=== PATIENT | male | born 1960 | race Caucasian/White ===

== ENCOUNTER 2017-03-26 07:55 | Emergency (ER) | payer OTHER ==
[2017-03-26 08:07] VITALS: BP 136/72; PULSE 73; TEMP 98.4; BMI 13.1
--- NOTE | 2017-03-26 08:08 | PDOC ---
History of Present Illness - General Chief Complaint: Pain, Acute Stated Complaint: LEFT ARM SWOLLEN Time Seen by Provider: 03/26/17 07:58 History Source: Patient Exam Limitations: No Limitations - History of Present Illness Initial Comments: 56 yo M presents with L arm swelling. He has MR, nonverbal at baseline. No known trauma. He typically bruises easily. Past History - Past Medical History Allergies/Adverse Reactions: Allergies Allergy/AdvReac Type Severity Reaction Status Date / Time No Known Allergies Allergy Verified 03/26/17 08:01 Home Medications: Ambulatory Orders Acetaminophen [Tylenol .Regular Strength -] 650 mg PO PRN PRN 07/22/13 Ascorbic Acid [Vitamin C] 500 mg PO DAILY 07/22/13 Aspirin Coated [Ecotrin -] 81 mg PO DAILY 07/22/13 Famotidine [Pepcid -] 20 mg PO DAILY 07/22/13 Niacin [Niaspan] 500 mg PO HS 07/22/13 Nut.tx.gluc.intoler,Lac-Fr,Soy [Glucerna] 237 ml PO AM 07/22/13 Oxybutynin Chloride [Oxybutynin Chloride ER] 5 mg PO BID 07/22/13 Glyburide [Diabeta] 5 mg PO DAILY 01/15/16 Mineral Oil/Hydrophil Petrolat [Aquaphor Healing Ointment] 50 gm TP BID Na Phos,M-B/Na Phos,Di-Ba [Fleet Enema] 133 ml RC DAILY #2 enema 01/16/16 Psyllium Husk (with Sugar) [Metamucil Packet] 3.4 gm PO DAILY #1 box 01/16/16 Sennosides [Senna Laxative] 25 mg PO DAILY #30 tablet 01/16/16 Anemia: Yes Cardiac Disorders: Yes (MITRAL VALVE REGURG) Diabetes: Yes (DOWN'S,MENTAL RETARDATION) Disorders: Yes (UNDESCENDED TESTES) HTN: Yes Hypercholesterolemia: Yes - Immunization History Td Vaccination: Yes Immunization Up to Date: Yes - Psycho/Social/Smoking Cessation Hx Anxiety: No Suicidal Ideation: No Smoking Status: No Smoking History: Unknown if ever smoked Have you smoked in the past 12 months: No Number of Cigarettes Smoked Daily: 0 Hx Alcohol Use: No Drug/Substance Use Hx: No Substance Use Type: None Review of Systems - Review of Systems Able to Perform ROS?: No (nonverbal) *Physical Exam - Physical Exam Comments: GENERAL: Awake, alert, and fully oriented, in no acute distress HEAD: No signs of trauma EYES: PERRLA, EOMI, sclera anicteric, conjunctiva clear EXTREMITIES: L arm slightly swollen compared with R. Nontender. Small erythematous lesion to L upper arm. Remainder of extremities with normal range of motion, no edema. No clubbing or cyanosis. No cords, erythema, or tenderness NEUROLOGICAL: Cranial nerves II through XII grossly intact. Normal gait SKIN: Warm, Dry, normal turgor, no rashes or lesions noted except as above. Medical Decision Making - Medical Decision Making Very minimal difference in appearance of the arms. No erythema, no venous cords. No pitting edema. No signs of DVT. If swelling increases, recommended that he return for further evaluation. Stable for DC home. *DC/Admit/Observation/Transfer Diagnosis at time of Disposition: Left arm swelling - Discharge Dispostion Disposition: HOME Condition at time of disposition: Stable Admit: No - Patient Instructions Printed Discharge Instructions: DI for Arm Pain Additional Instructions: If the swelling worsens, or if there is redness, pain, or fever, return to the ER.
== END 2017-03-26 10:11 | disposition home or self-care (01) ==
LOC: FER 07:55
DX: M79.89 Other specified soft tissue disorders (principal); F79 Unspecified intellectual disabilities; I10 Essential (primary) hypertension; Q90.9 Down syndrome, unspecified; I34.0 Nonrheumatic mitral (valve) insufficiency
CPT/HCPCS: 73060-TC-LT; 73090-TC-LT; 99281-25

== ENCOUNTER 2017-05-14 09:35 | Emergency (ER) | payer OTHER ==
[2017-05-14 09:44] VITALS: BP 143/79; PULSE 92; TEMP 98.6; BMI 20.9
--- NOTE | 2017-05-14 09:55 | PDOC ---
History of Present Illness - General Chief Complaint: Eye Problem Stated Complaint: LEFT EYE REDNESS Time Seen by Provider: 05/14/17 09:37 History Source: Patient Exam Limitations: No Limitations - History of Present Illness Initial Comments: 05/14/17 09:56 56y M hx of microcephaly, DM2, HTN, MR, HL, nonverbal at baseline, CKD presents with eye redness. Per staff accompanying the pt, he was fine yesterday and there was no recent fever/chills, n/v, eye discharge, sneezing, runny nose or change to his behavior. During breakfast, the pt was noted to have some redness in his L eye and he was rubbing it several times, but that seems to have stopped. Staff notes that they put sunscreen on the patients every day, and did prior to breakfast. Staff notes that the redness seems to have improved even over the past 2 hrs. There was no noted dishcarge in his eyes overnight nor when people cleaned him this morning. Past History - Past Medical History Allergies/Adverse Reactions: Allergies Allergy/AdvReac Type Severity Reaction Status Date / Time No Known Allergies Allergy Verified 05/14/17 09:36 Home Medications: Ambulatory Orders Ascorbic Acid [Vitamin C] 500 mg PO DAILY 05/14/17 Clotrimazole 1 applic TP BID 05/14/17 Cyanocobalamin [Vitamin B12 -] 1,000 mcg PO DAILY 05/14/17 Famotidine 20 mg PO DAILY 05/14/17 Glyburide 5 mg PO DAILY 05/14/17 Nut.tx.gluc.intoler,Lac-Fr,Soy [Glucerna 1.5 Mark] 237 ml PO DAILY 05/14/17 Oxybutynin Chloride 5 mg PO BID 05/14/17 Polyethylene Glycol 3350 [Miralax (For Daily Use) -] 17 gm PO DAILY 05/14/17 Sennosides [Senna -] 1 tab PO HS 05/14/17 Anemia: Yes Cardiac Disorders: Yes (MITRAL VALVE REGURG) Diabetes: Yes Disorders: Yes (UNDESCENDED TESTES) HTN: Yes Hypercholesterolemia: Yes Other medical history: DOWN'S SYNDROME, MR - Immunization History Td Vaccination: Yes Immunization Up to Date: Yes - Psycho/Social/Smoking Cessation Hx Anxiety: No Suicidal Ideation: No Smoking Status: No Smoking History: Never smoked Have you smoked in the past 12 months: No Number of Cigarettes Smoked Daily: 0 Information on smoking cessation initiated: No Hx Alcohol Use: No Drug/Substance Use Hx: No Substance Use Type: None Review of Systems - Review of Systems Able to Perform ROS?: No (nonverbal) *Physical Exam - Vital Signs Last Vital Signs Temp Pulse Resp BP Pulse Ox 98.6 F 92 H 18 143/79 97 05/14/17 09:35 05/14/17 09:35 05/14/17 09:35 05/14/17 09:35 05/14/17 09:35 - Physical Exam Comments: 05/14/17 09:59 GENERAL: The patient is awake, alert, Nontoxic - in no acute distress. HEAD: microocephalic, atraumatic. EYES: extraocular movements intact, sclera anicteric, mild L sided conjunctival erythema. no discharge ENT: Normal voice, Moist mucous membranes. NECK: Normal range of motion, supple, no cervical lymphadenopathy LUNGS: Breath sounds equal, clear to auscultation bilaterally. HEART: Regular rate and rhythm, ABDOMEN: Soft, nontender, w/o rebound/guarding SKIN: Warm, Dry, normal turgor, Medical Decision Making - Medical Decision Making 05/14/17 10:00 suspect irritation due to unknown substance ?sunscreen improving inconsistent with conjunvititis will recommend supprotive care if worse, fevers, +discahrge will have pt fu with PMD or return to ED I discussed the physical exam findings, ancillary test results and final diagnoses with the patient. I answered all of the patient's questions. The patient was satisfied with the care received and felt comfortable with the discharge plan and treatment plan. The patient will call their primary care physician within 24 hours to arrange follow-up and will return to the Emergency Department with any new, persistent or worsening symptoms. *DC/Admit/Observation/Transfer Diagnosis at time of Disposition: Conjunctival irritation - Discharge Dispostion Disposition: HOME Condition at time of disposition: Stable Admit: No - Referrals Referrals: [facility] [Provider Group] - Patient Instructions Additional Instructions: Return to the emergency department immediately with ANY new, persistent or worsening symptoms including any increasing redness, eye discahrge, discomfort or other concerns. You MUST call and follow up with your primary care doctor or the staff nurse in 4-5 days for further evaluation of your symptoms. Results were discussed with you. Please make sure your doctor reviews the results of your emergency evaluation.
== END 2017-05-14 10:20 | disposition home or self-care (01) ==
LOC: FER 09:35
DX: H11.89 Other specified disorders of conjunctiva (principal); Q90.9 Down syndrome, unspecified; I10 Essential (primary) hypertension; E78.00 Pure hypercholesterolemia, unspecified; D64.9 Anemia, unspecified; E11.9 Type 2 diabetes mellitus without complications; Q53.20 Undescended testicle, unspecified, bilateral; I51.9 Heart disease, unspecified
CPT/HCPCS: 99282-25